=== PATIENT | male | born 1955 | race Caucasian/White ===

== ENCOUNTER 2019-04-13 21:26 | Emergency (ER) | payer MEDICARE, BC ==
[~2019-04-13] VITALS: Ht 177.8 cm; Wt 82.6 kg
--- NOTE | 2019-04-13 21:52 | NUR ---
Patient ambulated with stable gait. Patient came for c/o flu-like symptoms, cough congestion. Patient states this is an ongoing situation for him and is requesting for Augmentin prescription. No evidence of cough or increased work of respirations upon assessment. No cardiovascular distress noted, all pulses palpable.
--- NOTE | 2019-04-13 22:20 | NUR ---
Patient discharged to home in stable conditon. Written and verbal after care instructions given. Patient verbalizes understanding of instructions.
[2019-04-13 23:01] VITALS: BP 120/81
== END 2019-04-13 23:02 | disposition home or self-care (01) ==
LOC: ER 21:26
DX: B34.9 Viral infection, unspecified (principal); I48.91 Unspecified atrial fibrillation; E78.5 Hyperlipidemia, unspecified; J45.909 Unspecified asthma, uncomplicated
CPT/HCPCS: A4663